=== PATIENT | female | born 1960 | race Two or more races ===

== ENCOUNTER → 2018-01-04 | Outpatient (CLI) | payer OTHER | LOC: FLAB 11:43 | PROVIDERS: ATTEND Family Medicine | DX: R07.89 Other chest pain (principal); R06.02 Shortness of breath ==

== ENCOUNTER 2018-01-23 18:13 | Emergency (ER) | payer OTHER ==
[2018-01-23] MEDS ORDERED: NS 1,000 ML IV ONE ×2 (18:31→18:38)
--- NOTE | 2018-01-23 18:31 | EDPHY ---
H & P Stated Complaint: L flank/epigastric pain Time Seen by Provider: 01/23/18 18:31 HPI/ROS: HPI CHIEF COMPLAINT: Abdominal pain, nausea. Chills. HISTORY OF PRESENT ILLNESS: 57-year-old female, otherwise healthy no significant medical history presents emergency room with abdominal pain, chills , left flank pain. Patient states this started much earlier today. She flew from [place] back to [place]. She felt unwell most of the flight. Main complaint ongoing abdominal pain. Describes mid abdominal pain crampy. No diarrhea. No vomiting. Had nausea. Chills. Could not get warm. Past Medical History: Denies Past Surgical History: Denies Social History: Denies drugs alcohol tobacco. Family History: Noncontributory ROS REVIEW OF SYSTEMS: 10 Systems were reviewed and negative with the exception of the elements mentioned in the history of present illness. Exam Constitutional nontoxic, triage nursing summary reviewed, vital signs reviewed , awake/alert. Eyes normal conjunctivae and sclera, EOMI, PERRLA. HENT normal inspection, atraumatic, moist mucus membranes, no epistaxis, neck supple/ no meningismus, no raccoon eyes. Respiratory clear to auscultation bilaterally, normal breath sounds, no respiratory distress, no wheezing. Cardiovascular rate normal, regular rhythm, no murmur, no edema, distal pulses normal. Gastrointestinal mild tender palpation diffusely, no peritoneal signs, mild tender palpation left CVA, no rebound, no guarding, normal bowel sounds, no distension, no pulsatile mass. Genitourinary no CVA tenderness. Musculoskeletal no midline vertebral tenderness, full range of motion, no calf swelling, no tenderness of extremities, no meningismus, good pulses, neurovascularly intact. Skin pink, warm, & dry, no rash, skin atraumatic. Neurologic awake, alert and oriented x 3, AAOx3, moves all 4 extremities equally, motor intact, sensory intact, CN II-XII intact, normal cerebellar, normal vision, normal speech. Psychiatric normal mood/affect. Heme/Lymph/Immune no lymphadenopathy. Differential diagnosis includes but is not limited to and in no particular order : Bowel obstruction, appendicitis, gallbladder disease, diverticulitis, colitis , enteritis, perforated viscus, gastritis, GERD, esophagitis, urinary tract infection, pyelonephritis, kidney stones Medical Decision Making: Plan for this patient IV establishment with IV fluid bolus, IV Dilaudid, IV Zofran, basic blood work, urinalysis, CT scan abdomen pelvis with IV contrast Re-evaluation: CT scan abdomen pelvis with IV contrast shows no acute inflammation visualized. No evidence of kidney stones. No acute inflammatory process seen called to me by Dr. Colmenares. EKG interpretation by me on record in [facility] system. Impression time of EKG 190, sinus rhythm rate of 89 without any he has acute signs of ischemia. No signs of cardiogram acute ischemia. No ST elevation or ST depression no T- wave abnormalities no prolonged intervals. No signs of WPW 2155: On re-examination at this time this patient is resting comfortably she denies any chest pain or shortness of breath. Denies any abdominal pain. She is resting comfortably. Here in the emergency room she has received 2 L of fluid. Her blood work has been reviewed she has a negative troponin Her BNP is not elevated. Her electrolytes are appropriate including kidney function. CBC is unremarkable Her chest x-ray has been reviewed does show bronchial inflammation. I do not believe she has congestive heart failure she has no JVD, no extremity swelling, no crackles on lung exam, normal pulse ox, normal BNP. However given her chills, cough which is nonproductive, subjective fever, not feeling well I will place her on Levaquin. I do recommend that she return emergency room she develops worsening shortness of breath, chest pain, fever, vomiting, not doing well. Follow up with her PCP. Return precautions discussed with her she understands and is agreeable for this plan. She is eager for discharge. 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 Return precautions discussed with the patient 1st dose of Levaquin given in emergency room. Levaquin prescription for rest. Return precautions discussed She ambulated well throughout the emergency room without any distress or hypoxia and feels well to go home. Source: Patient - Personal History Current Tetanus/Diphtheria Vaccine: Unsure Current Tetanus Diphtheria and Acellular Pertussis (TDAP): Unsure - Medical/Surgical History Hx Asthma: No Hx Chronic Respiratory Disease: No Hx Diabetes: No Hx Cardiac Disease: No Hx Renal Disease: No Hx Cirrhosis: No Hx Alcoholism: No Hx HIV/AIDS: No Hx Splenectomy or Spleen Trauma: No Other PMH: denies - Social History Smoking Status: Never smoked Constitutional: Initial Vital Signs Temperature (C) 37 C 01/23/18 18:20 Heart Rate 97 01/23/18 18:20 Respiratory Rate 16 01/23/18 18:20 Blood Pressure 135/80 H 01/23/18 18:20 O2 Sat (%) 95 01/23/18 18:20 O2 Delivery Mode Nasal Cannula O2 (L/minute) 2 Allergies/Adverse Reactions: No Known Allergies Allergy (Unverified 01/23/18 18:20) Home Medications: Medication Instructions Recorded levOFLOXACIN [levAQUIN] 750 mg PO DAILY #10 tab 01/23/18 Medical Decision Making - Diagnostics Imaging Results: Imaging Impressions Abdomen CT 01/23/18 18:39 Impression: Minimal peritoneal free fluid; otherwise negative CT abdomen and pelvis with contrast Results called Dr. Osmin Evans at 7:25 PM. Chest X-Ray 01/23/18 19:40 Impression: Findings suggest early congestive heart failure. Central bronchitis. - Data Points Laboratory Results: Laboratory Results 01/23/18 18:35 01/23/18 18:35 01/23/18 01/23/18 01/23/18 19:10 18:35 18:35 WBC RBC Hgb Hct MCV MCH MCHC RDW Plt Count MPV Neut % (Auto) Lymph % (Auto) [place] % (Auto) Eos % (Auto) Baso % (Auto) Nucleat RBC Rel Count Absolute Neuts (auto) Absolute Lymphs (auto) Absolute Monos (auto) Absolute Eos (auto) Absolute Basos (auto) Absolute Nucleated RBC Immature Gran % Immature Gran # VBG Lactic Acid Sodium Potassium Chloride Carbon Dioxide Anion Gap BUN Creatinine Estimated GFR Glucose Calcium Total Bilirubin Conjugated Bilirubin Unconjugated Bilirubin AST ALT Alkaline Phosphatase POC Troponin I 0.00 ng/mL ng/mL (0.00-0.08) Troponin I < 0.012 ng/mL ng/mL (0.000-0.034) NT-Pro-B Natriuret Pep 71 pg/mL pg/mL (0-125) Total Protein Albumin Lipase Urine Color Urine Appearance Urine pH Ur Specific [place] Urine Protein Urine Ketones Urine Blood Urine Nitrate Urine Bilirubin Urine Urobilinogen Ur Leukocyte Esterase Urine RBC Urine WBC Ur Epithelial Cells Urine Mucus Urine Glucose 01/23/18 01/23/18 01/23/18 18:35 18:35 18:35 WBC 10.75 10^3/uL H 10^3/uL (3.80-9.50) RBC 4.65 10^6/uL 10^6/uL (4.18-5.33) Hgb 14.3 g/dL g/dL (12.6-16.3) Hct 41.9 % % (38.0-47.0) MCV 90.1 fL fL (81.5-99.8) MCH 30.8 pg pg (27.9-34.1) MCHC 34.1 g/dL g/dL (32.4-36.7) RDW 13.1 % % (11.5-15.2) Plt Count 259 10^3/uL 10^3/uL (150-400) MPV 9.6 fL fL (8.7-11.7) Neut % (Auto) 86.4 % H % (39.3-74.2) Lymph % (Auto) 8.6 % L % (15.0-45.0) [facility] % (Auto) 3.6 % L % (4.5-13.0) Eos % (Auto) 0.6 % % (0.6-7.6) Baso % (Auto) 0.4 % % (0.3-1.7) Nucleat RBC Rel Count 0.0 % % (0.0-0.2) Absolute Neuts (auto) 9.30 10^3/uL H 10^3/uL (1.70-6.50) Absolute Lymphs (auto) 0.92 10^3/uL L 10^3/uL (1.00-3.00) Absolute Monos (auto) 0.39 10^3/uL 10^3/uL (0.30-0.80) Absolute Eos (auto) 0.06 10^3/uL 10^3/uL (0.03-0.40) Absolute Basos (auto) 0.04 10^3/uL 10^3/uL (0.02-0.10) Absolute Nucleated RBC 0.00 10^3/uL 10^3/uL (0-0.01) Immature Gran % 0.4 % % (0.0-1.1) Immature Gran # 0.04 10^3/uL 10^3/uL (0.00-0.10) VBG Lactic Acid 1.4 mmol/L mmol/L (0.7-2.1) Sodium 136 mEq/L mEq/L (135-145) Potassium 4.4 mEq/L mEq/L (3.5-5.2) Chloride 104 mEq/L mEq/L (97-110) Carbon Dioxide 22 mEq/l mEq/l (22-31) Anion Gap 10 mEq/L mEq/L (6-14) BUN 15 mg/dL mg/dL (7-23) Creatinine 0.7 mg/dL mg/dL (0.6-1.0) Estimated GFR > 60 Glucose 110 mg/dL H mg/dL (70-100) Calcium 9.3 mg/dL mg/dL (8.5-10.4) Total Bilirubin 0.9 mg/dL mg/dL (0.1-1.4) Conjugated Bilirubin 0.2 mg/dL mg/dL (0.0-0.5) Unconjugated Bilirubin 0.7 mg/dL mg/dL (0.0-1.1) AST 20 IU/L IU/L (14-46) ALT 30 IU/L IU/L (9-52) Alkaline Phosphatase 123 IU/L IU/L (38-126) POC Troponin I Troponin I NT-Pro-B Natriuret Pep Total Protein 7.7 g/dL g/dL (6.3-8.2) Albumin 4.5 g/dL g/dL (3.5-5.0) Lipase 63 IU/L IU/L (23-300) Urine Color Urine Appearance Urine pH Ur Specific [place] Urine Protein Urine Ketones Urine Blood Urine Nitrate Urine Bilirubin Urine Urobilinogen Ur Leukocyte Esterase Urine RBC Urine WBC Ur Epithelial Cells Urine Mucus Urine Glucose 01/23/18 18:23 WBC RBC Hgb Hct MCV MCH MCHC RDW Plt Count MPV Neut % (Auto) Lymph % (Auto) [facility] % (Auto) Eos % (Auto) Baso % (Auto) Nucleat RBC Rel Count Absolute Neuts (auto) Absolute Lymphs (auto) Absolute Monos (auto) Absolute Eos (auto) Absolute Basos (auto) Absolute Nucleated RBC Immature Gran % Immature Gran # VBG Lactic Acid Sodium Potassium Chloride Carbon Dioxide Anion Gap BUN Creatinine Estimated GFR Glucose Calcium Total Bilirubin Conjugated Bilirubin Unconjugated Bilirubin AST ALT Alkaline Phosphatase POC Troponin I Troponin I NT-Pro-B Natriuret Pep Total Protein Albumin Lipase Urine Color PALE YELLOW Urine Appearance CLEAR Urine pH 7.0 (5.0-7.5) Ur Specific [place] 1.014 (1.002-1.030) Urine Protein NEGATIVE (NEGATIVE) Urine Ketones NEGATIVE (NEGATIVE) Urine Blood 2+ H (NEGATIVE) Urine Nitrate NEGATIVE (NEGATIVE) Urine Bilirubin NEGATIVE (NEGATIVE) Urine Urobilinogen NEGATIVE EU EU (0.2-1.0) Ur Leukocyte Esterase NEGATIVE (NEGATIVE) Urine RBC 15-25 /hpf H /hpf (0-3) Urine WBC 1-3 /hpf /hpf (0-3) Ur Epithelial Cells NONE SEEN /lpf /lpf (NONE-1+) Urine Mucus TRACE /lpf /lpf (NONE-1+) Urine Glucose NEGATIVE (NEGATIVE) Medications Given: Discontinued Medications Hydromorphone HCl (Dilaudid) 0.5 mg IVP EDNOW ONE Stop: 01/23/18 18:39 Last Admin: 18 18:50 Dose: 0.5 mg Sodium Chloride (Ns) 1,000 mls @ 0 mls/hr IV EDNOW ONE; Wide Open PRN Reason: Protocol Stop: 18 18:32 Last Admin: 18 18:49 Dose: 1,000 mls Sodium Chloride (Ns) 1,000 mls @ 0 mls/hr IV ONCE ONE PRN Reason: Wide Open Stop: 18 18:39 Last Admin: 1218 18:50 Dose: 1,000 mls Ondansetron HCl (Zofran) 4 mg IVP EDNOW ONE Stop: 18 18:39 Last Admin: 18 18:49 Dose: 4 mg Point of Care Test Results: Chemistry 18 19:10 POC Troponin I 0.00 ng/mL ng/mL (0.00-0.08) Departure - Departure Disposition: Home, Routine, Self-Care Clinical Impression: Viral bronchitis Abdominal pain Qualifiers: Abdominal location: generalized Qualified Code(s): R10.84 - Generalized abdominal pain Condition: Good Instructions: Acute Bronchitis (ED), Acute Abdominal Pain (ED), Acute Cough (ED ) Additional Instructions: 1. [place] diet over the next 24-48 hours no spicy fatty greasy foods. 2. Return to the emergency room if worsening abdominal pain fever vomiting. 3. Stay well-hydrated 4. Return if worsening shortness of breath, fever, vomiting, not doing well. Referrals: Karma Gonzales MD [Primary Care Provider] - As per Instructions Stand Alone Forms: Work Excuse Prescriptions: levOFLOXACIN [levAQUIN] 750 mg PO DAILY #10 tab
[2018-01-23] MEDS ORDERED: HYDROmorphONE/DILAUDID 2 MG/ML INJ IVP ONE (18:38)
[2018-01-23] MEDS ORDERED: ONDANSETRON 4 MG/2 ML VIAL IVP ONE (18:38)
[2018-01-23 18:51] LABS: PLATELET COUNT 259 10^3/uL (150-400)
[2018-01-23 22:07] VITALS: BP 119/74
--- NOTE | 2018-01-23 22:35 | CPEKG ---
Test Reason : OPEN Blood Pressure : / mmHG Vent. Rate : 089 BPM Atrial Rate : 089 BPM P-R Int : 142 ms QRS Dur : 092 ms QT Int : 381 ms P-R-T Axes : 064 052 050 degrees QTc Int : 464 ms Sinus rhythm Confirmed by Efren Sharif ([id number]) on 01/23/2018 10:33:59 PM Referred By: Confirmed By:Efren Sharif
== END 2018-01-23 22:18 | disposition home or self-care (01) ==
DX: J20.8 Acute bronchitis due to other specified organisms (principal); E86.9 Volume depletion, unspecified
CPT/HCPCS: 84484-ER; 96374; J1170; J2405

== ENCOUNTER → 2018-03-27 | Outpatient (CLI) | payer OTHER | LOC: FIMAGING 10:55 | PROVIDERS: ATTEND Family Medicine | DX: R05 Cough (principal); E04.1 Nontoxic single thyroid nodule; R91.1 Solitary pulmonary nodule ==